=== PATIENT | female | born 1965 | race Caucasian/White ===

== ENCOUNTER → 2021-04-15 | Emergency (ER) | payer SELFPAY ==
[~2021-04-15] VITALS: Ht 167.6 cm; Wt 82.1 kg
[~2021-04-15] MED LIST: ALDACTONE25 MG PO; CITALOPRAM HBR20 MG PO; FLAGYL500 MG PO; MOBIC7.5 MG PO; NORVASC2.5 MG PO; PRILOSEC OTC20 MG PO; TRIAMTERENE-HC1 EAC3 PO
== END | disposition home or self-care (01) ==
LOC: ED 13:28
DX: N95.0 Postmenopausal bleeding (principal); I10 Essential (primary) hypertension; Z79.899 Other long term (current) drug therapy; Z79.84 Long term (current) use of oral hypoglycemic drugs
CPT/HCPCS: 99283